=== PATIENT | male | born 1965 | race Caucasian/White ===

== ENCOUNTER 2016-12-21 23:42 | Emergency (ER) | payer OTHER ==
[~2016-12-21] VITALS: Ht 172.7 cm; Wt 109.1 kg
[~2016-12-21 23:42] MED LIST: AZIT250T2 PO; BNZN100C PO
[2016-12-21 23:48] VITALS: BP 114/82; PULSE 98; RESP 16; O2SAT 98
--- NOTE | 2016-12-22 00:04 | ED.REPORT ---
HPI-Abd Pain M 40 and Over Date of Service Dec 22, 2016 ED Provider: Dr. Didier Swenson M.D. A healthy 51 year old male presents to the ED with diarrhea onset two days ago. Associated symptoms include lower abdominal pain and decreased appetite. The patient denies nausea, vomiting, hematochezia, lightheadedness, or other symptoms. His coworker was recently ill with similar symptoms that resolved in 24 hours. Nursing Notes Stated Complaint: DEHYDRATED, STOMACH PAIN AND DIARRHEA Chief Complaint: Male Abdominal Pain Nursing Notes Reviewed: Yes Allergies: Uncoded Allergies: PENICILLIN (Allergy, Unknown, 12/21/16) Scheduled Benzonatate-Expunged Drug, Do Not Renew! (Tessalon Pearles-Expunged Drug, Do Not Renew!) 100 Mg Capsule 2 CAP PO TIDP DO NOT CHEW Miscellaneous Medications Azithromycin (Azithromycin) 250 Mg Tablet 250-500 MG PO General Time Seen by MD: 00:03 Chief Complaint Diarrhea moderate Hx Obtained From: Patient Arrived By: Walk-in Sudden in Onset?: Yes Onset Occurred: 2 days ago Symptom Duration: Since onset Location: : Abdomen lower Quality: Painful Severity: Current: Moderate Severity: Maximum: Moderate Associated with: Denies: Fever, Hematochezia, Nausea, Vomiting Pertinent Negative: Relieved by nothing Recent Healthcare: No recent doctor visit Past Medical History Past Medical History None reported Past Surgical History Tonsillectomy Smoking History Unknown if Ever Smoker Social History Alcohol Use: "Social" Other Social History: Smokeless tobacco Occupation [employer] Ambulatory Status Independent Review of Systems Review of Systems Note: + Decreased appetite Constitutional: Denies: Fever Respiratory: Denies: Non-productive cough, Shortness of breath GI: Reports: Abdominal pain (Lower), Diarrhea, Denies: Hematochezia, Nausea, Vomiting Complete sys rev & neg: except as marked. Neurologic: Denies: Lightheaded Physical Exam Physical Exam Notes: Initial Vital Signs Vital Signs (First) Date Time Temp Pulse Resp B/P Pulse Ox O2 Delivery O2 Flow Rate FiO2 12/21/16 23:48 36.5 98 16 114/82 98 Room Air Initial VS: Reviewed Head / Eyes: Atraumatic, Normocephalic Skin: Warm, Dry Neurologic: Alert, Oriented Psychiatric: Mood/affect normal, Behavior normal General/Constitutional: Awake, Alert Respiratory / Chest: No respiratory distress Abdomen: Soft, Non-tender ENT: Airway patent Mouth: Positive: Mucous membranes dry Interpretation & Diagnostics Lab Results Interpretation Result Diagram: 12/22/16 0050 12/22/16 0050 Test 12/22/16 00:50 White Blood Count 11.8th/mm3 (3.8-10.1) Red Blood Count 5.52mil/mm3 (4.40-5.80) Hemoglobin 16.4g/dL (13.8-17.2) Hematocrit 47.9% (41.0-50.0) Mean Corpuscular Volume 86.8fL (81-100) Mean Corpuscular Hemoglobin 29.7pg (27.0-35.0) Mean Corpuscular Hemoglobin Concent 34.2% (32.0-37.0) Red Cell Distribution Width 13.8% (12.3-15.4) Platelet Count 387bil/L (150-400) Neutrophils (%) (Auto) 75.4% (40-74) Lymphocytes (%) (Auto) 14.1% (14-46) Monocytes (%) (Auto) 8.4% (4-12) Eosinophils (%) (Auto) 1.4% (0-5) Basophils (%) (Auto) 0.3% (0-3) Sodium Level 139mEq/L (134-144) Potassium Level 3.8mEq/L (3.5-5.2) Chloride Level 101mEq/L (97-108) Carbon Dioxide Level 22mmol/L (18-29) Blood Urea Nitrogen 11mg/dL (6-24) Creatinine 0.88mg/dL (0.76-1.27) Estimat Glomerular Filtration Rate 96mL/min (>59) Glucose Level 121mg/dL (60-99) Calcium Level 9.2mg/dL (8.5-10.1) Total Bilirubin 0.8mg/dL (0.0-1.2) Aspartate Amino Transf (AST/SGOT) 18U/L (0-50) Alanine Aminotransferase (ALT/SGPT) 19U/L (0-44) Alkaline Phosphatase 72U/L (25-150) Total Protein 7.4g/dL (6.4-8.4) Albumin 4.3g/dL (3.4-5.0) Re-Eval/Medical Decision Med Decision/Clinical Course Well appearing otherwise healthy male with acute diarrhea. 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 Discussed empiric abx with pt who prefers not. NS 2L in ED Time of Eval: 01:36 Patient Status: Condition improved Re-Evaluation/Progress Note: Patient has been unable to provide a stool sample but will continue drinking juice. Time of Eval: 02:13 Patient Status: Condition improved Re-Evaluation/Progress Note: Patient is feeling better but has still been unable to provide a stool sample. He agrees to collect one at home if diarrhea persists. Discussed with patient lab results, diagnosis, and plan for discharge. Follow-up and return to the ER instructions given. Patient agrees with plan for care and all questions were addressed. Counseled Regarding: Diagnosis, Lab results, Need for follow-up, When/why to return to ED Discharge & Departure Primary Impression: Diarrhea of presumed infectious origin Disposition: Home Vital Signs - All Vital Signs Date Time Temp Pulse Resp B/P Pulse Ox O2 Delivery O2 Flow Rate FiO2 12/21/16 23:48 36.5 98 16 114/82 98 Room Air )( All Prior VS Reviewed: Yes Condition: Improved Patient Instructions: Acute Diarrhea (ED) Additional Instructions: ED evaluation included interview, exam and labs. We sent a slip and container to collect a stool sample and bring in to the lab when able. You can call for results 24 hours after the sample is dropped off. We will not start antibiotics at this point. Get plenty of fluids, diet otherwise as tolerated. Call the resident's clinic to establish primary care. Return to increasing pain , fevers or blood in stool. Referrals: [facility] Scribe Attestation Portions of this note were transcribed by Georgie Hendrickson. I, Dr. Swenson, personally performed the history, physical exam, and medical decision-making; I reviewed and confirmed the accuracy of the information in the transcribed note. Signed by: Cortes Cueto, 12/22/2016, 02:20 Didier Swenson MD Dec 22, 2016 00:04 GEORGIE HENDRICKSON Dec 22, 2016 00:11
[2016-12-22] MEDS ORDERED: 0.9% Sodium Chloride 1,000 ML IV ONE ×2 (00:15→00:55)
[2016-12-22 00:56] LABS: BASOPHILS % (AUTO) 0.3 % (0-3); EOSINOPHILS % (AUTO) 1.4 % (0-5); MONOCYTES % (AUTO) 8.4 % (4-12); Mean Corpuscular Hemoglobin 29.7 pg (27.0-35.0); Mean Corpuscular Volume 86.8 fL (81-100); NEUTROPHILS % (AUTO) 75.4 % (40-74); Platelet Count 387 bil/L (150-400)
[2016-12-22 02:40] VITALS: BP 118/83; PULSE 87; RESP 16; O2SAT 99
== END 2016-12-22 02:42 | disposition home or self-care (01) ==
LOC: SED 23:42
DX: R19.7 Diarrhea, unspecified (principal); R10.30 Lower abdominal pain, unspecified
CPT/HCPCS: 36415; 80053; 85025; 87507; 96360; 96361; 99284; J7030